=== PATIENT | female | born 1945 | race Caucasian/White ===

== ENCOUNTER 2017-04-09 10:37 | Day surgery (SDC) | payer OTHER, MEDICAID ==
[~2017-04-09] VITALS: Ht 157.5 cm; Wt 64.0 kg
[2017-04-09] VITALS (14 sets, daily range): BP systolic 105–140; BP diastolic 51–64; PULSE 70–92; RESP 14–18; Ht 157.5 cm; Wt 64.0 kg
[~2017-04-09 10:37] MED LIST: EPHEDrine SULFATE 50 MG/5 ML SYG ONE
[2017-04-09] MEDS ORDERED: ATEN-51 PO (11:14)
[2017-04-09] MEDS ORDERED: SIMV20TA PO (11:15)
[2017-04-09] MEDS ORDERED: LOSA100T47 PO (11:15)
[2017-04-09] MEDS ORDERED: ASPI-664 PO (11:15)
[2017-04-09] MEDS ORDERED: BUPIVACAINE 0.5% (SDV) 30 ML INJ ONE (11:55)
[2017-04-09] MEDS ORDERED: POVIDONE IODINE 10% 28.4 GM OINT ONE (11:56)
[2017-04-09] MEDS ORDERED: DEXAMETHASONE 4 MG/ML 1 ML INJ ONE (11:56)
[2017-04-09] MEDS ORDERED: MIDAZOLAM 1 MG/ML 2 ML INJ ONE (12:17)
[2017-04-09] MEDS ORDERED: PROPOFOL 20 ML ONE (12:17)
[2017-04-09] MEDS ORDERED: LIDOCAINE 2% (SDV) 5 ML INJ ONE (12:17)
[2017-04-09] MEDS ORDERED: FENTAnyl 50 MCG/ML VIAL ONE (12:17)
--- NOTE | 2017-04-09 12:38 | HPN ---
Date/Time of Note Date/Time of Note DATE: 04/09/17 TIME: 12:37 Interval H&P Admission Note Pt. seen H&P reviewed: No system changes TANVIR FLYNN DPM Apr 09, 2017 12:38
[2017-04-09] MEDS ORDERED: CEFAZOLIN 1 GM INJ ONE (12:48)
[2017-04-09] MEDS ORDERED: METOCLOPRAMIDE 10 MG INJ ONE (12:48)
[2017-04-09] MEDS ORDERED: ONDANSETRON 4 MG INJ ONE (12:48)
[2017-04-09] MEDS ORDERED: PHENYLephrine (100 MCG/ML) 5ML SYG ONE (12:52)
[2017-04-09] MEDS ORDERED: VASOPRESSIN 20 UNITS INJ ONE (13:00)
[2017-04-09] MEDS ORDERED: ESMOLOL 10 ML ONE (13:03)
--- NOTE | 2017-04-09 14:02 | SIPON ---
Date/Time of Note Date/Time of Note DATE: 04/09/17 TIME: 13:57 Operative Report Preoperative Diagnosis Preoperative diagnosis hallux abductovalgus with bunion formation left right foot gait postop Postoperative Diagnosis Diagnosis is the same Operation/Procedure Performed Operation performed is an osteotomy and bunionectomy with screw fixation first metatarsal and an João osteotomy with staple fixation proximal phalanx hallux all on the right foot Surgeon see signature line assistant pressman None Anesthesia: general Estimated blood loss: minimal Transfusion Required none Specimen Bone specimen Grafts/Implants Screw fixation first metatarsal and staple fixation proximal phalanx hallux Complications none TANVIR FLYNN DPM Apr 09, 2017 14:02
[2017-04-09] MEDS ORDERED: PROCHLORPERAZINE 10 MG INJ IV PRN (14:30)
[2017-04-09] MEDS ORDERED: FENTAnyl 50 MCG/ML VIAL IV PRN (14:30)
[2017-04-09] MEDS ORDERED: OXYCODONE/ACETAMINOPHEN (5/325) TAB PO PRN ×2 (14:30)
[2017-04-09] MEDS ORDERED: hydrALAzine 20 MG INJ IV PRN (14:30)
[2017-04-09] MEDS ORDERED: EPHEDrine SULFATE 50 MG/5 ML SYG IV PRN (14:30)
[2017-04-09] MEDS ORDERED: LABETALOL HCL 20MG INJ IV PRN (14:30)
[2017-04-09] MEDS ORDERED: ONDANSETRON 4 MG INJ IV PRN (14:30)
[2017-04-09] MEDS ORDERED: MEPERIDINE 25 MG INJ IV PRN (14:30)
[2017-04-09] MEDS ORDERED: HYDROmorphONE (0.2 MG/ML) 10ML SYG IV PRN (14:30)
[2017-04-09] MEDS ORDERED: KETOROLAC 30 MG INJ IV PRN (14:30)
[2017-04-09] MEDS ORDERED: DIPHENHYDRAMINE 50 MG INJ IV PRN (14:30)
--- NOTE | 2017-04-09 14:53 | PREOPHP ---
DATE OF ADMISSION: 04/09/2017 HISTORY OF PRESENT ILLNESS: The patient is being admitted to the hospital for elective foot surgery. Palliative treatment, unsuccessful. The patient has been explained surgery, complications, alternatives, and elected to have elective foot surgery. Patient is having pain on the bunion on the right foot. ALLERGIES: PATIENT DENIES ANY ALLERGIES. MEDICATIONS: She takes medicine for high blood pressure only. REVIEW OF SYSTEMS: Negative heart, lung, liver, kidney, thyroid. Diabetes, negative. SOCIAL HISTORY: Negative smoking and alcohol. See pertinent history and upper extremity physical exam, by [facility]. PHYSICAL EXAMINATION: Lower extremity physical exams shows a DP and PT, equal and regular +3. NEUROLOGICAL: Negative for pathology. DERMATOLOGICAL: Negative for pathology. MUSCULOSKELETAL: Shows the hallux abductovalgus with bunion deformity, right foot. FINAL DIAGNOSIS: Hallux abductovalgus with bunion deformity, right foot. Dictated By: Maximo Moss DPM /randall/olga /Document#: [id number]
--- NOTE | 2017-04-09 16:17 | OPR ---
DATE OF OPERATION: 04/09/2017 PREOPERATIVE DIAGNOSIS: Hallux abductovalgus with bunion deformity, right foot. POSTOPERATIVE DIAGNOSIS: Hallux abductovalgus with bunion deformity, right foot. SURGERY: Osteotomy and bunionectomy with fixation, 1st metatarsal right foot and madelyn osteotomy with fixation, proximal phalanx, hallux right foot. SURGEON: Maximo Moss DPM OPERATIVE PROCEDURE: Patient brought to the surgical suite, placed in the supine position. The patient was under general anesthesia with cardiac monitoring. Patient had sterile prep and drape, tourniquet mid thigh. The patient had findings consistent with the pre and postop diagnosis. The 1st incision was a dorsal medial longitudinal incision over the 1st metatarsophalangeal joint using sharp and blunt dissection. The incision was carried deep. The Bovie was used as necessary. A longitudinal capsulotomy was made and the head of the proximal phalanx was freed of its attachment dorsally and medially and the proximal phalanx was freed of the base and the lateral aspect was remodeled and the shaft was also freed. The medial eminence of the 1st metatarsal was resected and then a horizontal V osteotomy with the apex distal in the base going proximally was made and cut through and through. The 2 proximal ones were at 60 degree angles to each other and the capital fragment was moved laterally, impacted upon the shaft. A K-wire was placed across the osteotomy site and measured and a 14 mm x 2.5 right headless screw was placed over the K-wire and screwed into place. The overhang of the 1st metatarsal was resected. The area was cleansed and our attention was turned to the proximal phalanx, which had been freed on the shaft and an madelyn osteotomy, which is with the apex lateral and the base on the medial aspect approximately 2.5 mm at its widest point was made and then the distal part was impacted on the proximal part and a staple by Eladio was used, an 8 x 8 and that held the osteotomy site in place. The area was cleansed and an EpiFix 4 x 4.5 mesh by [employer] was then placed in the surgical site and then a 3-0 Vicryl was used to coaptate the subcutaneous tissue and the skin was coaptated using 5-0 Nylon. The area was injected with 0.5 percent Marcaine to prolong anesthesia and had a dressing of half- inch Steri-Strips, 4x4s impregnated with Betadine solution, Betadine ointment, and gauze, and Leigh with an outer layer of Coban made into a semicompressive dressing was used. The patient tolerated surgery well and the patient was returned to recovery room in satisfactory condition. There was minimum blood loss and no complications. Dictated By: Maximo Moss DPM /randall/carlie /Document#: [id number] KALEY
== END 2017-04-09 15:50 | disposition home or self-care (01) ==
LOC: SDS 10:37 → SUR 10:37
PROVIDERS: ATTEND Podiatrist
DX: M20.11 Hallux valgus (acquired), right foot (principal); M21.611 Bunion of right foot; E78.5 Hyperlipidemia, unspecified; E11.9 Type 2 diabetes mellitus without complications; I10 Essential (primary) hypertension
CPT/HCPCS: 28299; 82962; 88304; 88311; J0690; J2250; J2370; J2405; J2765; J3010; L3260; J1100

== ENCOUNTER 2017-06-09 10:45 | Emergency (ER) | payer OTHER, MEDICAID ==
[~2017-06-09] VITALS: Ht 149.9 cm; Wt 64.3 kg
[~2017-06-09 10:45] MED LIST changes: +ASPI-664 PO; +ATEN-51 PO; -EPHEDrine SULFATE 50 MG/5 ML SYG ONE; +LOSA100T47 PO; +SIMV20TA PO
[2017-06-09 10:47] VITALS: Ht 149.9 cm; Wt 64.3 kg
[2017-06-09] MEDS ORDERED: ONDANSETRON 4 MG INJ IV STA (11:08)
[2017-06-09] MEDS ORDERED: morphine 4 MG/ML VIAL IV STA (11:08)
[2017-06-09 11:43] LABS: ADD UMIC YES; UR ASCORBIC ACID NEGATIVE (NEGATIVE); UR BACTERIA FEW /HPF (NONE SEEN); UR BILIRUBIN (Dip) NEGATIVE (NEGATIVE); UR BLOOD (Dip) NEGATIVE (NEGATIVE); UR CLARITY CLEAR (CLEAR); UR COLOR YELLOW (YELLOW); UR GLUCOSE (Dip) 3+ mg/dL (NEGATIVE); UR KETONES (Dip) 1+ mg/dL (NEGATIVE); UR LEUKOCYTE ESTERASE (Dip) TRACE Leu/ul (NEGATIVE); UR NITRITE (Dip) NEGATIVE (NEGATIVE); UR RBC 3 /HPF (0-5); UR SPECIFIC GRAVITY (Dip) 1.027 (1.003-1.030); UR TOTAL PROTEIN (Dip) NEGATIVE (NEGATIVE); UR UROBILINOGEN (Dip) NEGATIVE (NEGATIVE)
[2017-06-09 11:45] LABS: UR MUCUS FEW /HPF (NONE SEEN); UR SQUAMOUS EPITHELIAL CELL FEW /HPF (FEW)
[2017-06-09 11:57] LABS: BASOPHILS % 0.3 % (0.0-2.0); EOSINOPHILS # 0.1 10^3/ul (0.0-0.5); EOSINOPHILS % 0.4 % (0.0-7.0); HEMATOCRIT 33.1 % (37.0-47.0); LYMPHOCYTES # 2.2 10^3/ul (0.8-2.9); LYMPHOCYTES % 15.6 % (15.0-51.0); MEAN CORPUSCULAR HEMOGLOBIN 28.4 pg (29.0-33.0); MEAN CORPUSCULAR HGB CONC 33.2 g/dl (32.0-37.0); MEAN CORPUSCULAR VOLUME 85.5 fl (82.0-101.0); MEAN PLATELET VOLUME 10.4 fl (7.4-10.4); MONOCYTE # 1.1 10^3/ul (0.3-0.9); MONOCYTES % 7.6 % (0.0-11.0); NEUTROPHIL # 10.7 10^3/ul (1.6-7.5); NEUTROPHILS % 75.7 % (39.0-77.0); PLATELET COUNT 228 10^3/UL (140-415); RED BLOOD COUNT 3.87 10^6/ul (4.20-5.40); RED CELL DISTRIBUTION WIDTH 14.8 % (11.5-14.5); WHITE BLOOD COUNT 14.1 10^3/ul (4.8-10.8)
[2017-06-09 12:15] LABS: ALANINE AMINOTRANSFERASE 18 IU/L (13-69); ALBUMIN 3.9 g/dl (3.3-4.9); ALKALINE PHOSPHATASE 137 IU/L (42-121); ANION GAP 14 (8-16); ASPARTATE AMINO TRANSFERASE 19 IU/L (15-46); BILIRUBIN,INDIRECT 0.3 mg/dl (0-1.1); BILIRUBIN,TOTAL 0.3 mg/dl (0.2-1.3); BLOOD UREA NITROGEN 15 mg/dl (7-20); CALCIUM 10.7 mg/dl (8.4-10.2); CARBON DIOXIDE 27 mmol/L (21-31); CHLORIDE 103 mmol/L (97-110); GLUCOSE 124 mg/dl (70-220); POTASSIUM 3.8 mmol/L (3.5-5.1); SODIUM 140 mmol/L (135-144); TOTAL PROTEIN 8.2 g/dl (6.1-8.1)
[2017-06-09 12:27] LABS: TROPONIN-I < 0.012 ng/ml (0.00-0.12)
[2017-06-09] MEDS ORDERED: CEPHALEXIN 500 MG CAP PO ONE (12:30)
--- NOTE | 2017-06-09 12:39 | RADRPT ---
PROCEDURE: US right upper quadrant abdomen. CLINICAL INDICATION: Abdominal pain TECHNIQUE: Multiple real-time images were acquired of the patient's right upper quadrant abdomen utilizing a high resolution transducer. COMPARISON: None FINDINGS: The liver demonstrates increased echogenicity and borderline enlarged size measuring 18.1 cm without focal lesions. Patent portal vein. Normal gallbladder without gallstones, pericholecystic fluid or gallbladder wall thickening. Negative sonographic Swanson's sign. No intrahepatic or extrahepatic bi liary dilatation. The common bile duct measures 6.9 mm in maximal dimension. The visualized portio ns of the pancreas are normal. The right kidney is normal size with normal echogenicity and morpholo gy. The right kidney measures 12.2 cm. Round non vascular hypoechoic area in the upper pole of the right kidney measuring 3.2 x 2.9 x 3.2 cm with internal echogenicity. No hydronephrosis or perineph jane fluid collections. 7 mm right renal stone. Normal caliber aorta and IVC. No peritoneal free flui d. IMPRESSION: 1. Enlarged echogenic liver consistent with fatty infiltration. 2. 3.2 cm complex cyst in the right kidney. This could represent focal pyelonephritis if clinical co ncern for infection. No evidence of infection, recommend follow-up imaging with renal mass protocol MRI to evaluate for malignancy. 3. 7 mm right renal stone without hydronephrosis. RPTAT:AAJJ Physician Zehra Date Time Electronically viewed and signed by Physician Zehra on 06/09/2017 12:39 /
[2017-06-09] MEDS ORDERED: CEPH-443 PO (12:57)
[2017-06-09] MEDS ORDERED: ONDA4TAB14 PO (12:57)
[2017-06-09] MEDS ORDERED: HYDR-906 PO (12:57)
--- NOTE | 2017-06-09 13:02 | ERD ---
ER Documentation Chief Complaint Chief Complaint RUQ PAIN SINCE LAST NIGHT; NAUSEA HPI Patient is a 72-year-old female with hypertension who presents with abdominal pain. The patient is right upper quadrant abdominal pain which started last night. The pain is constant. The patient has had no treatment as of yet. He has nausea but no vomiting or diarrhea. Upon review of old medical records this is the patient's first visit to the ER. ROS All systems reviewed and are negative except as per history of present illness. Medications Home Meds Active Scripts Ondansetron (Ondansetron Odt) 4 Mg Tab.rapdis, 4 MG PO Q6H Y for NAUSEA AND/OR VOMITING, #10 TAB Prov:LIT MORGAN MD 06/09/17 Hydrocodone/Acetaminophen ([place] 5-325 Tablet) 1 Each Tablet, 1 TAB PO Q6H Y for PAIN, #7 TAB Prov:LIT MORGAN MD 06/09/17 Cephalexin* (Keflex*) 500 Mg Capsule, 500 MG PO QID for 7 Days, CAP Prov:LIT MORGAN MD 06/09/17 PMhx/Soc History of Surgery: Yes (FOOT SURGERY) Anesthesia Reaction: No Hx Neurological Disorder: No Hx Respiratory Disorders: No Hx Cardiac Disorders: Yes (HTN) Hx Psychiatric Problems: No Hx Miscellaneous Medical Probl: No Hx Alcohol Use: No Hx Substance Use: No Hx Tobacco Use: No Smoking Status: Never smoker FmHx Family History: No diabetes Physical Exam Vitals Vital Signs Date Time Temp Pulse Resp B/P Pulse Ox O2 Delivery O2 Flow Rate FiO2 06/09/17 13:14 80 20 132/78 99 Room Air 06/09/17 10:47 99.4 83 19 131/63 95 Physical Exam Const: Mild distress secondary to pain Head: Atraumatic Eyes: Normal Conjunctiva ENT: Normal External Ears, Nose and Mouth. Neck: Full range of motion..~ No meningismus. Resp: Clear to auscultation bilaterally Cardio: Regular rate and rhythm, no murmurs Abd: Soft, diffuse tenderness to palpation without rebound or guarding Skin: No petechiae or rashes Back: No midline or flank tenderness Ext: No cyanosis, or edema Neur: Awake and alert Psych: Normal Mood and Affect Result Diagram: 06/09/17 1130 06/09/17 1130 Results 24 hrs Laboratory Tests Test 06/09/17 11:13 11/19/17 11:30 Urine Color YELLOW Urine Clarity CLEAR Urine pH 5.0 Urine Specific [place] 1.027 Urine Ketones 1+mg/dL Urine Nitrite NEGATIVEmg/dL Urine Bilirubin NEGATIVEmg/dL Urine Urobilinogen NEGATIVEmg/dL Urine Leukocyte Esterase TRACELeu/ul Urine Microscopic RBC 3/HPF Urine Microscopic WBC 70/HPF Urine Squamous Epithelial Cells FEW/HPF Urine Bacteria FEW/HPF Urine Mucus FEW/HPF Urine Hemoglobin NEGATIVEmg/dL Urine Glucose 3+mg/dL Urine Total Protein NEGATIVEmg/dl White Blood Count 14.110^3/ul Red Blood Count 3.8710^6/ul Hemoglobin 11.0g/dl Hematocrit 33.1% Mean Corpuscular Volume 85.5fl Mean Corpuscular Hemoglobin 28.4pg Mean Corpuscular Hemoglobin Concent 33.2g/dl Red Cell Distribution Width 14.8% Platelet Count 90647^3/UL Mean Platelet Volume 10.4fl Neutrophils % 75.7% Lymphocytes % 15.6% Monocytes % 7.6% Eosinophils % 0.4% Basophils % 0.3% Nucleated Red Blood Cells % 0.0/100WBC Neutrophils # 10.710^3/ul Lymphocytes # 2.210^3/ul Monocytes # 1.110^3/ul Eosinophils # 0.110^3/ul Basophils # 0.010^3/ul Nucleated Red Blood Cells # 0.010^3/ul Sodium Level 140mmol/L Potassium Level 3.8mmol/L Chloride Level 103mmol/L Carbon Dioxide Level 27mmol/L Anion Gap 14 Blood Urea Nitrogen 15mg/dl Creatinine 0.80mg/dl Glucose Level 124mg/dl Calcium Level 10.7mg/dl Total Bilirubin 0.3mg/dl Direct Bilirubin 0.00mg/dl Indirect Bilirubin 0.3mg/dl Aspartate Amino Transf (AST/SGOT) 19IU/L Alanine Aminotransferase (ALT/SGPT) 18IU/L Alkaline Phosphatase 137IU/L Troponin I < 0.012ng/ml Total Protein 8.2g/dl Albumin 3.9g/dl Globulin 4.30g/dl Albumin/Globulin Ratio 0.90 Lipase 118U/L Current Medications Medications (Trade) Dose Ordered Sig/Geoavny Route PRN Reason Start Time Stop Time Status Last Admin Dose Admin Morphine Sulfate (morphine) 4 mg ONCE STAT IV 06/09/17 11:08 06/09/17 11:09 DC 06/09/17 11:35 Ondansetron HCl (Zofran Inj) 4 mg ONCE STAT IV 06/09/17 11:08 06/09/17 11:09 DC 06/09/17 11:35 Cephalexin (Keflex) 500 mg ONCE ONCE PO 06/09/17 12:30 06/09/17 12:31 DC 06/09/17 13:12 Procedures/MDM EKG read by me: Rate/Rhythm: Regular rate and rhythm at a rate of 78 Intervals: Normal Impression: No evidence of ischemia or arrhythmia PROCEDURE: US right upper quadrant abdomen. CLINICAL INDICATION: Abdominal pain TECHNIQUE: Multiple real-time images were acquired of the patient's right upper quadrant abdomen utilizing a high resolution transducer. COMPARISON: None FINDINGS: The liver demonstrates increased echogenicity and borderline enlarged size measuring 18.1 cm without focal lesions. Patent portal vein. Normal gallbladder without gallstones, pericholecystic fluid or gallbladder wall thickening. Negative sonographic Swanson's sign. No intrahepatic or extrahepatic biliary dilatation. The common bile duct measures 6.9 mm in maximal dimension. The visualized portions of the pancreas are normal. The right kidney is normal size with normal echogenicity and morphology. The right kidney measures 12.2 cm. Round non vascular hypoechoic area in the upper pole of the right kidney measuring 3.2 x 2.9 x 3.2 cm with internal echogenicity. No hydronephrosis or perinephric fluid collections. 7 mm right renal stone. Normal caliber aorta and IVC. No peritoneal free fluid. IMPRESSION: 1. Enlarged echogenic liver consistent with fatty infiltration. 2. 3.2 cm complex cyst in the right kidney. This could represent focal pyelonephritis if clinical concern for infection. No evidence of infection, recommend follow-up imaging with renal mass protocol MRI to evaluate for malignancy. 3. 7 mm right renal stone without hydronephrosis. RPTAT:AAJJ Physician Zehra Date Time Electronically viewed and signed by Manny Doll Physician on 06/09/2017 12 :39 Patient is a 9-year-old female presents with abdominal pain. The patient was found to have on ultrasound a possible partial pyelonephritis. Urinalysis does show infection consistent with pyelonephritis. At this point however I doubt sepsis and the patient is overall well-appearing with stable vital signs. The patient has an elevated white blood cell count which goes along with a pyelonephritis. She has anemia with a hemoglobin of 11.0 but does not require transfusion. The patient will be discharged but will need to follow-up closely with her primary doctor within 24-48 hours. She can return sooner for any worsening symptoms. Departure Diagnosis: Primary Impression: Pyelonephritis Additional Impression: Abdominal pain Abdominal location: generalized Qualified Code: R10.84 - Generalized abdominal pain Condition: Fair Patient Instructions: Abdominal Pain, Pyelonephritis, Female (Adult) Additional Instructions: Llame al doctor MAANA y david gary XANDER PARA DENTRO DE 1-2 MARIE.Dgale a la secretaria que nosotros le instruimos hacer esta xander.Avise o llame si [place] condicin se empeora antes de la xander. Regresa aqui si peor o no mejor. LIT MORGAN MD Jun 09, 2017 13:02
[2017-06-09 13:14] VITALS: BP 132/78; PULSE 80; RESP 20
== END 2017-06-09 13:15 | disposition home or self-care (01) ==
LOC: E/R 10:45 → MERGE 10:45 → E/R 13:15
DX: N12 Tubulo-interstitial nephritis, not specified as acute or chronic (principal); I10 Essential (primary) hypertension
CPT/HCPCS: 36415; 76705; 80053; 81001; 83690; 84484; 85025; 93005; 96374; 96375; 99285; J2270; J2405

== ENCOUNTER 2017-10-01 11:12 | Day surgery (SDC) | END 2017-10-01 15:48 | disposition home or self-care (01) ==